=== PATIENT | male | born 1995 | race Caucasian/White ===

== ENCOUNTER 2017-06-13 17:04 | Emergency (ER) | payer BC ==
[~2017-06-13] VITALS: Ht 180.3 cm; Wt 60.0 kg
[2017-06-13 17:11] VITALS: BP 112/59; PULSE 96; RESP 20; TEMP 97.8; O2SAT 98
--- NOTE | 2017-06-13 21:51 | PD ---
HPI Chief Complaint: GI Complaint Time Seen by Provider: 21:36 Travel History International Travel<30 days: No Contact w/Intl Traveler<30days: No Traveled to known affect area: No History of Present Illness HPI 21-year-old male complains of nausea and vomiting. He reports drinking alcohol last night. He woke up at about 3 in the afternoon and after eating some food began vomiting profusely. He reports no weakness in his arms and legs after multiple episodes of vomiting. He also notes hyperventilating at the time. EMS reports low end tidal CO2. The patient reports a history of anxiety. He denies any history of panic attack. In terms of breath. No headache. No visual change. At the time of ER evaluation, 5 hours after ER arrival, the patient's only complains hunger. PFSH Past Medical History Headaches: Yes Past Surgical History Surgical History: No Previous Surgery Social History Alcohol Use: Yes Tobacco Use: No Substance Use: No Allergies-Medications (Allergen,Severity, Reaction): Coded Allergies: No Known Allergies (Unverified , 06/13/17) Review of Systems Except as stated in HPI: all other systems reviewed are Neg General / Constitutional: No: Fever Eyes: No: Photophobia Physical Exam Narrative GENERAL: 21-year-old male well-nourished well-developed no acute distress sitting upright in bed speaking full sentences Vital Signs Date Time Temp Pulse Resp B/P (MAP) Pulse Ox O2 Delivery O2 Flow Rate FiO2 06/13/17 17:11 97.8 96 20 112/59 (76) 98 SKIN: Warm and dry. HEAD: Atraumatic. Normocephalic. EYES: Pupils equal and round. No scleral icterus. No injection or drainage. ENT: No nasal bleeding or discharge. Mucous membranes pink and moist. NECK: Trachea midline. No JVD. CARDIOVASCULAR: Regular rate and rhythm. RESPIRATORY: No accessory muscle use. Clear to auscultation. Breath sounds equal bilaterally. GASTROINTESTINAL: Abdomen soft, non-tender, nondistended. Hepatic and splenic margins not palpable. MUSCULOSKELETAL: Extremities without clubbing, cyanosis, or edema. No obvious deformities. NEUROLOGICAL: Awake and alert. No obvious cranial nerve deficits. Motor grossly within normal limits. Five out of 5 muscle strength in the arms and legs. Normal speech. PSYCHIATRIC: Appropriate mood and affect; insight and judgment normal. Data Data Last Documented VS Vital Signs Date Time Temp Pulse Resp B/P (MAP) Pulse Ox O2 Delivery O2 Flow Rate FiO2 06/13/17 17:11 97.8 96 20 112/59 (76) 98 MDM Medical Decision Making Medical Screen Exam Complete: Yes Emergency Medical Condition: Yes Differential Diagnosis Anxiety, gastroenteritis, alcohol poisoning Narrative Course patient is very well-appearing at the time of evaluation, 9:50 PM, about 4 hours and 40 minutes after his arrival. He drank Gatorade and ate 2 packages of hayden crackers without difficulty. He is safe for discharge home. Symptoms most likely in keeping with electrolyte imbalance and hypocarbia due to hyperventilation. Diagnosis Primary Impression: Vomiting Qualified Codes: R11.10 - Vomiting, unspecified Additional Impressions: Hyperventilation syndrome Hypocarbia Med/Other Pt SpecificInfo: No Change to Meds Disposition: 01 DISCHARGE HOME Condition: Stable Fabricio Rendon MD Jun 13, 2017 21:51
[2017-06-14] MEDS ORDERED: ZOFR4TAB3 SL (07:56)
== END 2017-06-13 22:04 | disposition home or self-care (01) ==
LOC: NEPD 17:04
DX: R11.2 Nausea with vomiting, unspecified (principal); F45.8 Other somatoform disorders; R06.89 Other abnormalities of breathing; E87.6 Hypokalemia; E86.0 Dehydration
CPT/HCPCS: 99282

== ENCOUNTER 2017-06-13 22:57 | Emergency (ER) | payer BC ==
[~2017-06-13] VITALS: Ht 180.3 cm; Wt 60.0 kg
[2017-06-14 00:38] VITALS: BP 124/63; PULSE 90; RESP 18; TEMP 98.4; O2SAT 98
[2017-06-14 04:23] VITALS: BP 118/69; PULSE 84; RESP 20; TEMP 98.3; O2SAT 100
[2017-06-14] MEDS ORDERED: SODIUM CHLOR 0.9% 1000 ML INJ 1,000 ML IV ONE ×2 (05:15→08:00)
[2017-06-14] MEDS ORDERED: ONDANSETRON HCL 4 MG/2 ML VIAL IV PUSH ONE ×2 (05:15→08:00)
[2017-06-14 06:12] LABS: AUTOMATED NEUTROPHIL # 5.6 TH/MM3 (1.8-7.7); BASOPHIL % 0.2 % (0.0-2.0); EOSINOPHIL # 0.1 TH/MM3 (0-0.4); EOSINOPHIL % 0.9 % (0.0-4.0); HEMOGLOBIN 14.8 GM/DL (13.0-17.0); LYMPH % 34.8 % (9.0-44.0); LYMPHOCYTE # 3.6 TH/MM3 (1.0-4.8); MEAN CORPUSCULAR HEMOGLOBIN 33.1 PG (27.0-34.0); MEAN CORPUSCULAR HGB CONC 35.2 % (32.0-36.0); MEAN PLATELET VOLUME 8.8 FL (7.0-11.0); NEUT % 54.1 % (16.0-70.0); PLATELET COUNT 218 TH/MM3 (150-450); RED BLOOD COUNT 4.47 MIL/MM3 (4.50-5.90); RED CELL DISTRIBUTION WIDTH 13.1 % (11.6-17.2); WHITE BLOOD COUNT 10.3 TH/MM3 (4.0-11.0)
[2017-06-14 06:44] VITALS: BP 133/61; PULSE 83; RESP 18; O2SAT 99
[2017-06-14 07:01] LABS: ACETAMINOPHEN LESS THAN 2.0 MCG/ML (10.0-30.0); ALBUMIN 3.9 GM/DL (3.4-5.0); ALKALINE PHOSPHATASE 62 U/L (45-117); ALT (GPT) 21 U/L (9-52); AST (GOT) 25 U/L (15-39); BLOOD UREA NITROGEN 9 MG/DL (7-18); CALCIUM 8.4 MG/DL (8.5-10.1); CHLORIDE 107 MEQ/L (98-107); CREATININE 0.77 MG/DL (0.60-1.30); GLOMERULAR FILTRATION RATE 129 ML/MIN (>89); GLUCOSE,RANDOM 97 MG/DL (74-106); MAGNESIUM 2.2 MG/DL (1.5-2.5); SODIUM (NA) 141 MEQ/L (136-145); TOTAL BILIRUBIN ADULT 2.1 MG/DL (0.2-1.0); TOTAL PROTEIN 6.7 GM/DL (6.4-8.2)
[2017-06-14 07:22] LABS: BILIRUBIN, URINE NEG (NEG); BLOOD, URINE NEG (NEG); GLUCOSE,URINE NEG (NEG); KETONE, URINE 80 mg/dL (NEG); MUCUS URINE MANY /lpf (OCC); NITRITE,URINE NEG (NEG); SQUAMOUS EPITHELIAL CELL URINE <1 /hpf (0-5); URINE COLOR YELLOW (YELLW/STRAW); URINE LEUKOCYTE ESTERASE NEG (NEG)
[2017-06-14] MEDS ORDERED: KETOROLAC TROMETHAMINE 30 MG/ML (IVP) VIAL IV PUSH ONE (07:45)
[2017-06-14] MEDS ORDERED: POTASSIUM CHLORIDE 20 MEQ CONTROLLED RELEASE TAB PO ONE (07:45)
[2017-06-14] MEDS ORDERED: ZOFR4TAB3 SL (07:56)
--- NOTE | 2017-06-14 07:57 | PD ---
HPI Chief Complaint: Psychiatric Symptoms Time Seen by Provider: 05:13 Travel History International Travel<30 days: No Contact w/Intl Traveler<30days: No Traveled to known affect area: No History of Present Illness HPI 21-year-old male presents to the emergency department for not feeling well after drinking alcohol heavily over the last few days. Patient states every time he closes his eyes he has flashbacks of all the parting that he is done and it makes him feel strange. Patient denies any suicidal or homicidal ideation. Patient states that there are no auditory hallucinations and he has not been told to do anything to himself or others. Patient states as long as he keeps his eyes open he does not have these visual hallucinations or does not seem to feel like he sleeping while he is awake. Patient had no fall or injury. Patient was seen throughout the day on Sunday received IV fluids and was discharged around 11:30 PM. Patient states he was very nauseated but went to [facility] because he was very hungry as soon as he ate he had an episode of vomiting all stomach contents. No hematemesis no coffee-ground emesis no bilious emesis and also denies any melena hematochezia. Patient denies any abdominal pain. Patient's had no fever or chills. Patient is visiting from out of town. Patient is otherwise in good health. Patient states he rarely drinks alcoholic beverages and does not use any substances. Patient rates his overall discomfort 5/10 intensity. PFSH Past Medical History Narrative Medical Negative past medical history negative surgical history occasional alcohol use; nursing notes reviewed Diminished Hearing: No Headaches: Yes Tetanus Vaccination: Unknown Influenza Vaccination: No Past Surgical History Surgical History: No Previous Surgery Social History Alcohol Use: Yes (occasuionally) Tobacco Use: No Substance Use: No Allergies-Medications (Allergen,Severity, Reaction): Coded Allergies: No Known Allergies (Unverified , 06/13/17) Reported Meds & Prescriptions Reported Meds & Active Scripts Active No Active Prescriptions or Reported Medications Review of Systems Except as stated in HPI: all other systems reviewed are Neg Physical Exam Narrative GENERAL: Well-developed well-nourished male no acute distress no respiratory distress GCS 15 SKIN: Warm and dry. HEAD: Atraumatic. Normocephalic. EYES: Pupils equal and round. No scleral icterus. No injection or drainage. ENT: No nasal bleeding or discharge. Mucous membranes pink and moist. NECK: Trachea midline. No JVD. CARDIOVASCULAR: Regular rate and rhythm. RESPIRATORY: No accessory muscle use. Clear to auscultation. Breath sounds equal bilaterally. GASTROINTESTINAL: Abdomen soft, non-tender, nondistended. Hepatic and splenic margins not palpable. MUSCULOSKELETAL: Extremities without clubbing, cyanosis, or edema. No obvious deformities. NEUROLOGICAL: Awake and alert. No obvious cranial nerve deficits. Motor grossly within normal limits. Five out of 5 muscle strength in the arms and legs. Normal speech. PSYCHIATRIC: Appropriate mood and affect; insight and judgment normal. Data Data Last Documented VS Vital Signs Date Time Temp Pulse Resp B/P (MAP) Pulse Ox O2 Delivery O2 Flow Rate FiO2 06/14/17 06:44 83 18 133/61 (85) 99 Room Air 06/14/17 04:23 98.3 Orders Orders Complete Blood Count With Diff (06/14/17 05:13) Comprehensive Metabolic Panel (06/14/17 05:13) Thyroid Stimulating Hormone (06/14/17 05:13) Urinalysis - C+S If Indicated (06/14/17 05:13) Iv Access Insert/Monitor (06/14/17 05:13) Drug Screen, Random Urine (06/14/17 05:13) Alcohol (Ethanol) (06/14/17 05:13) Salicylates (Aspirin) (06/14/17 05:13) Tylenol (Acetaminophen) (06/14/17 05:13) Sodium Chlor 0.9% 1000 Ml Inj (Ns 1000 M (06/14/17 05:15) Ondansetron Inj (Zofran Inj) (06/14/17 05:15) Magnesium (Mg) (06/14/17 05:13) Potassium Chloride (Kcl) (06/14/17 07:45) Ketorolac Inj (Toradol Inj) (06/14/17 07:45) Ns (Bolus) Inj (06/14/17 08:00) Ondansetron Inj (Zofran Inj) (06/14/17 08:00) Ed Discharge Order (06/14/17 07:49) Labs Laboratory Tests Test 06/14/17 05:40 06/14/17 06:40 White Blood Count 10.3 TH/MM3 Red Blood Count 4.47 MIL/MM3 Hemoglobin 14.8 GM/DL Hematocrit 42.0 % Mean Corpuscular Volume 94.0 FL Mean Corpuscular Hemoglobin 33.1 PG Mean Corpuscular Hemoglobin Concent 35.2 % Red Cell Distribution Width 13.1 % Platelet Count 218 TH/MM3 Mean Platelet Volume 8.8 FL Neutrophils (%) (Auto) 54.1 % Lymphocytes (%) (Auto) 34.8 % Monocytes (%) (Auto) 10.0 % Eosinophils (%) (Auto) 0.9 % Basophils (%) (Auto) 0.2 % Neutrophils # (Auto) 5.6 TH/MM3 Lymphocytes # (Auto) 3.6 TH/MM3 Monocytes # (Auto) 1.0 TH/MM3 Eosinophils # (Auto) 0.1 TH/MM3 Basophils # (Auto) 0.0 TH/MM3 CBC Comment DIFF FINAL Differential Comment Blood Urea Nitrogen 9 MG/DL Creatinine 0.77 MG/DL Random Glucose 97 MG/DL Total Protein 6.7 GM/DL Albumin 3.9 GM/DL Calcium Level 8.4 MG/DL Magnesium Level 2.2 MG/DL Alkaline Phosphatase 62 U/L Aspartate Amino Transf (AST/SGOT) 25 U/L Alanine Aminotransferase (ALT/SGPT) 21 U/L Total Bilirubin 2.1 MG/DL Sodium Level 141 MEQ/L Potassium Level 3.1 MEQ/L Chloride Level 107 MEQ/L Carbon Dioxide Level 26.0 MEQ/L Anion Gap 8 MEQ/L Estimat Glomerular Filtration Rate 129 ML/MIN Thyroid Stimulating Hormone 3rd Gen 0.734 uIU/ML Salicylates Level LESS THAN 1.7 MG/DL Acetaminophen Level LESS THAN 2.0 MCG/ML Ethyl Alcohol Level LESS THAN 3 MG/DL Urine Color YELLOW Urine Turbidity CLEAR Urine pH 6.0 Urine Specific [place] 1.032 Urine Protein 30 mg/dL Urine Glucose (UA) NEG mg/dL Urine Ketones 80 mg/dL Urine Occult Blood NEG Urine Nitrite NEG Urine Bilirubin NEG Urine Urobilinogen 2.0 MG/DL Urine Leukocyte Esterase NEG Urine RBC LESS THAN 1 /hpf Urine WBC 1 /hpf Urine Squamous Epithelial Cells <1 /hpf Urine Mucus MANY /lpf Microscopic Urinalysis Comment CULT NOT INDICATED Urine Opiates Screen NEG Urine Barbiturates Screen NEG Urine Amphetamines Screen NEG Urine Benzodiazepines Screen NEG Urine Cocaine Screen NEG Urine Cannabinoids Screen NEG MDM Medical Decision Making Medical Screen Exam Complete: Yes Emergency Medical Condition: Yes Medical Record Reviewed: Yes Interpretation(s) CBC & BMP Diagram 06/14/17 05:40 Total Protein 6.7, Albumin 3.9, Calcium Level 8.4 L, Magnesium Level 2.2, Alkaline Phosphatase 62, Aspartate Amino Transf (AST/SGOT) 25, Alanine Aminotransferase (ALT/SGPT) 21, Total Bilirubin 2.1 H Vital Signs Date Time Temp Pulse Resp B/P (MAP) Pulse Ox O2 Delivery O2 Flow Rate FiO2 06/14/17 06:44 83 18 133/61 (85) 99 Room Air 06/14/17 04:23 98.3 84 20 118/69 (85) 100 Room Air 06/14/17 00:38 98.4 90 18 124/63 (83) 98 Differential Diagnosis Dehydration, electrolyte disturbance, gastroenteritis, mood disorder Narrative Course IV access obtained specimens collected and sent for resulting patient placed on plant operations coordinator and administered 1 bolus of normal saline 1 L as well as Zofran 4 mg IV Patient resting comfortably has fall asleep and has had no episodes of being startled or agitated Lab values are found to be in normal range except for mild hypokalemia potassium replacement provided It is now 7:55 AM patient states he feels very well and would like to go home but still feels mildly nauseated and dehydrated therefore given additional dose of Zofran 4 mg IV and 1 L normal saline and will be provided prescription for Zofran ODT 4 mg Diagnosis Primary Impression: Vomiting Additional Impressions: Hypokalemia Dehydration, mild Referrals: Primary Care Physician call for appointment Patient Instructions: General Instructions Additional Instructions: Increase fluid hydration Follow clear liquid diet for next 12-24 hours advance as tolerated to bland/ brat diet and regular diet as tolerated May take acetaminophen/Tylenol every 4 hours as needed for fever 100.4F or greater for minor pain May use ibuprofen 600 mg as often as every 6 hours avoid use for the first 24 hours as may cause increased stomach irritation Add potassium containing foods and beverages to dietary intake Take Zofran as prescribed as needed for nausea and/or vomiting Rest 1 day Do not drink alcoholic beverages Return to the emergency department for any concerns or change in condition Med/Other Pt SpecificInfo: Prescription(s) given Scripts Ondansetron Odt (Zofran Odt) 4 Mg Tab 4 MG SL Q6HR Y for Nausea/Vomiting, #10 TAB 0 Refills Prov: Sejal Riddle MD 06/14/17 Disposition: 01 DISCHARGE HOME Condition: Stable Sejal Riddle MD Jun 14, 2017 07:57
[2017-06-14 08:01] VITALS: BP 116/55; PULSE 76; RESP 16; TEMP 97.6; O2SAT 98
[2017-06-14] MEDS ORDERED: PROMETHAZINE INJ 25 MG/ML VIAL IM ONE (09:15)
== END 2017-06-14 11:16 | disposition home or self-care (01) ==
LOC: NEPC 22:57
DX: R11.2 Nausea with vomiting, unspecified (principal); E87.6 Hypokalemia; E86.0 Dehydration
CPT/HCPCS: 80053; 80307; 81001; 83735; 84443; 85025; 96361; 96372; 96374; 96375; 96376; 99284; J1885; J2405; J2550; J7030